=== PATIENT | female | born 1955 | race Caucasian/White ===

== ENCOUNTER 2024-04-13 15:34 | Inpatient (IN) | payer MEDICARE, OTHER ==
[~2024-04-13] VITALS: Ht 172.7 cm; Wt 90.7 kg
[2024-04-13 21:30] VITALS: BP 143/76; TEMP 97.7; O2SAT 95
[2024-04-13] MEDS: BLOOD SUGAR DIAGNOSTIC 1 EACH STRIP IN ONE (22:00)
[2024-04-13] MEDS ORDERED: TEMAZEPAM 7.5 MG CAPSULE PO PRN (22:00)
[2024-04-13] MEDS ORDERED: LORAZEPAM 0.5 MG TABLET PO PRN (22:00)
[2024-04-13] MEDS ORDERED: MAGNESIUM HYDROXIDE 30 ML UDC PO PRN (22:00)
[2024-04-13] MEDS ORDERED: MAG HYDROX/AL HYDROX/SIMETH 30 ML UDC PO PRN (22:00)
[2024-04-13] MEDS ORDERED: APIX5TAB PO (22:51)
[2024-04-13] MEDS ORDERED: DIVA125C5 PO (22:51)
[2024-04-13] MEDS ORDERED: OLAN20TA3 PO (22:51)
[2024-04-13] MEDS ORDERED: QUET25TA PO ×2 (22:51)
[2024-04-13] MEDS ORDERED: SPIR25TA6 PO (22:51)
[2024-04-13] MEDS ORDERED: FURO40TA5 PO (22:51)
[2024-04-13] MEDS ORDERED: ALBU6.7H9 INH (22:51)
[2024-04-13] MEDS ORDERED: ATOR40TA PO (22:51)
[2024-04-13] MEDS ORDERED: FLUT1BLS6 IH (22:51)
[2024-04-13] MEDS ORDERED: EMPA10TA PO (22:51)
[2024-04-13] MEDS ORDERED: ALBUTEROL FS 2.5 MG/3 ML VIAL.NEB NEB PRN (23:45)
[2024-04-14 06:31] VITALS: BP 143/76; TEMP 97.7; O2SAT 94
[2024-04-14 08:00] VITALS: BP 118/62; TEMP 97.7; O2SAT 98
[2024-04-14] MEDS: FUROSEMIDE 40 MG TABLET PO SCH (08:37)
[2024-04-14] MEDS: SPIRONOLACTONE 25 MG TABLET PO SCH (08:37)
[2024-04-14] MEDS: APIXABAN 5 MG TABLET PO SCH (08:37)
[2024-04-14] MEDS: EMPAGLIFLOZIN 10 MG TABLET PO SCH (09:19)
[2024-04-14 10:59] LABS: ALANINE AMINOTRANSFERASE 32 U/L (12-78); ALBUMIN 2.6 g/dL (3.4-5.0); ALKALINE PHOSPHATASE 100 U/L (46-116); ASPARTATE AMINOTRANSFERASE 33 U/L (15-37); BILIRUBIN,TOTAL 0.4 mg/dL (0.2-1.0); CALCIUM, SERUM 9.6 mg/dL (8.5-10.1); CARBON DIOXIDE 28 mmol/L (21-32); CHLORIDE 102 mmol/L (98-107); CREATININE 1.1 mg/dL (0.6-1.3); GLUCOSE 98 mg/dL (74-106); POTASSIUM 4.4 mmol/L (3.5-5.1); SODIUM SERUM 134 mmol/L (136-145); TOTAL PROTEIN, SERUM 9.3 g/dL (6.4-8.2); UREA NITROGEN, BLOOD 33 mg/dL (7-18)
[2024-04-14] MEDS: DIVALPROEX SODIUM 250 MG TABLET.DR PO SCH (12:31)
[2024-04-14] MEDS: OLANZAPINE 5 MG TABLET PO SCH (12:31)
[2024-04-14 16:00] VITALS: BP 126/61; TEMP 97.9; O2SAT 98
[2024-04-14 20:00] VITALS: BP 131/73; TEMP 98.1; O2SAT 97
[2024-04-14] MEDS: TEMAZEPAM 7.5 MG CAPSULE PO PRN (21:16)
[2024-04-14] MEDS: ATORVASTATIN 40 MG TABLET PO SCH (21:16)
[2024-04-14 21:52] LABS: CHOLESTEROL 80 mg/dL (<200); HDL CHOLESTEROL 33 mg/dL (40-60); LDL 62 mg/dL (0-99); TRIGLYCERIDES 54 mg/dL (30-150)
[2024-04-15 08:00] VITALS: BP 114/70; TEMP 97.8; O2SAT 96
[2024-04-15 16:14] VITALS: BP 130/93; TEMP 98.9; O2SAT 99
[2024-04-15 20:00] VITALS: BP 132/80; TEMP 98.5; O2SAT 96
[2024-04-16 08:00] VITALS: BP 124/97; TEMP 97.6; O2SAT 96
[2024-04-16] MEDS: FLUTICASONE/VILANTEROL 1 EACH BLST.W.DEV IH SCH (08:20)
[2024-04-16] MEDS: LORAZEPAM 0.5 MG TABLET PO PRN (12:13)
[2024-04-16 16:00] VITALS: BP 138/95; TEMP 98.2; O2SAT 97
[2024-04-16 21:37] VITALS: BP 126/92; TEMP 98.2; O2SAT 98
[2024-04-17 08:00] VITALS: BP 102/69; TEMP 97.8; O2SAT 100
[2024-04-17 16:24] VITALS: BP 130/67; TEMP 98.2; O2SAT 100
[2024-04-17 20:31] VITALS: BP 114/96; TEMP 98.2; O2SAT 97
[2024-04-18 08:00] VITALS: BP 129/71; TEMP 98.6; O2SAT 96
[2024-04-18 11:23] LABS: BASOPHILS % (AUTO) 0.7 % (0.0-2.0); EOSINOPHILS # (AUTO) 0.1 K/uL (0.0-0.7); EOSINOPHILS % (AUTO) 3.9 % (0.0-6.0); HEMATOCRIT 31 % (33-45); HEMOGLOBIN 10.1 g/dL (11.5-14.8); LYMPHOCYTES # (AUTO) 1.1 K/uL (0.8-4.8); LYMPHOCYTES % (AUTO) 39.2 % (20.0-44.0); MEAN CORPUSCULAR HEMOGLOBIN 29 PG (26.0-33.0); MEAN CORPUSCULAR HGB CONC 33 g/dl (31.0-36.0); MEAN CORPUSCULAR VOLUME 86 fL (82-100); MONOCYTES # (AUTO) 0.6 K/uL (0.1-1.30); NEUTROPHILS % (AUTO) 36.2 % (43.0-81.0); PLATELET COUNT (AUTO) 226 K/uL (150-450); RED BLOOD CELL COUNT(AUTO) 3.54 MIL/uL (4.0-5.2); RED CELL DISTRIBUTION WIDTH 16.8 % (11.5-15.0); WHITE BLOOD COUNT (AUTO) 2.9 K/uL (4.3-11.0)
[2024-04-18 11:26] LABS: CALCIUM, SERUM 9.5 mg/dL (8.5-10.1); CREATININE 0.9 mg/dL (0.6-1.3); POTASSIUM 4.5 mmol/L (3.5-5.1)
[2024-04-18] MEDS: DIVALPROEX SODIUM 250 MG TABLET.DR PO SCH (12:24)
[2024-04-18] MEDS: ACETAMINOPHEN 325 MG TABLET PO PRN (12:32)
[2024-04-18 16:00] VITALS: BP 113/66; TEMP 98.4; O2SAT 97
[2024-04-18 20:29] VITALS: BP 116/63; TEMP 98.2; O2SAT 97
[2024-04-18] MEDS: MUPIROCIN OINT 2% 22 GM TUBE NS SCH (21:09)
[2024-04-19 08:00] VITALS: BP 132/83; TEMP 98.6; O2SAT 100
[2024-04-19 16:00] VITALS: BP 129/83; TEMP 97.8; O2SAT 99
[2024-04-19 20:15] VITALS: BP 118/65; TEMP 98.5; O2SAT 99
[2024-04-20 08:00] VITALS: BP 127/74; TEMP 98.1; O2SAT 100
[2024-04-20] MEDS: OLANZAPINE ZYDIS 5 MG TAB.RAPDIS PO PRN (08:24)
[2024-04-20] MEDS: DIVALPROEX SODIUM 250 MG TABLET.DR PO SCH (12:26)
[2024-04-20 16:00] VITALS: BP 143/69; TEMP 98.7; O2SAT 96
[2024-04-20] MEDS: DIVALPROEX SODIUM 500 MG TABLET.DR PO SCH (17:34)
[2024-04-20 20:00] VITALS: BP 134/71; TEMP 98.5; O2SAT 99
[2024-04-21 08:00] VITALS: BP 123/79; TEMP 97.6; O2SAT 95
[2024-04-21 16:00] VITALS: BP_SYST 110; BP_SYST 99; BP_DIAS 61; BP_DIAS 67; TEMP 97.9; TEMP 98; O2SAT 95
[2024-04-21 20:28] VITALS: BP 120/99; TEMP 98.5; O2SAT 98
[2024-04-22 08:00] VITALS: BP 113/79; TEMP 97.7; O2SAT 96
[2024-04-22 16:00] VITALS: BP 125/66; TEMP 97.7; O2SAT 97
[2024-04-22 20:00] VITALS: BP 134/69; TEMP 98; O2SAT 97
[2024-04-22] MEDS: OLANZAPINE 5 MG TABLET PO SCH (21:27)
[2024-04-23 08:00] VITALS: BP 151/69; TEMP 98; O2SAT 99
[2024-04-23 16:00] VITALS: BP 131/78; TEMP 97.7; O2SAT 100
[2024-04-23 21:06] VITALS: BP 121/76; TEMP 97.9; O2SAT 97
[2024-04-24 08:00] VITALS: BP 135/70; TEMP 98.2; O2SAT 96
[2024-04-24 20:11] VITALS: BP 117/60; TEMP 98.4; O2SAT 96
[2024-04-25 08:00] VITALS: BP 100/61; TEMP 98.1; O2SAT 96
[2024-04-25 15:08] VITALS: BP 143/72; TEMP 98.8; O2SAT 100
[2024-04-25 20:00] VITALS: BP 117/68; TEMP 97.1; O2SAT 98
[2024-04-26 08:00] VITALS: BP 123/72; TEMP 97.7; O2SAT 98
== END 2024-04-26 13:25 | disposition home or self-care (01) | DRG 885 ==
LOC: EDBD 20:23 → GPS 20:23
PROVIDERS: ADMIT Nurse Practitioner Psychiatric/Mental Health; ATTEND Internal Medicine
DX: F39 Unspecified mood [affective] disorder (principal); I11.0 Hypertensive heart disease with heart failure; Z59.00 Homelessness unspecified; D68.59 Other primary thrombophilia; E87.1 Hypo-osmolality and hyponatremia; E44.0 Moderate protein-calorie malnutrition; I50.32 Chronic diastolic (congestive) heart failure; F29 Unspecified psychosis not due to a substance or known physiological condition; I10 Essential (primary) hypertension; E11.9 Type 2 diabetes mellitus without complications; I25.10 Atherosclerotic heart disease of native coronary artery without angina pectoris; Z73.6 Limitation of activities due to disability; Z79.51 Long term (current) use of inhaled steroids; Z79.899 Other long term (current) drug therapy; Z79.01 Long term (current) use of anticoagulants; E88.09 Other disorders of plasma-protein metabolism, not elsewhere classified; E66.01 Morbid (severe) obesity due to excess calories; E86.0 Dehydration; Z68.30 Body mass index [BMI] 30.0-30.9, adult; Z87.891 Personal history of nicotine dependence; F12.91 Cannabis use, unspecified, in remission; D63.8 Anemia in other chronic diseases classified elsewhere; R79.89 Other specified abnormal findings of blood chemistry; F15.10 Other stimulant abuse, uncomplicated
CPT/HCPCS: 36415; 80048-TC; 80053-TC; 80061-TC; 80164-TC; 85025-TC; 87081-TC; 97110-TC; 97116-TC; 97530-TC